=== PATIENT | female | born 1940 | race Two or more races ===

== ENCOUNTER 2017-06-08 13:50 | Emergency (ER) | payer MEDICARE, MEDICAID ==
[~2017-06-08] VITALS: Ht 152.4 cm; Wt 54.4 kg
[~2017-06-08 13:50] MED LIST: CLOP75TA41 PO; CYAN100022 SL; DONETAB6 PO; ENA2.5T PO; FERR325T PO; GABA-497; HYDR1CAP27 PO; HYDR25TA4 PO; LOPE2CAP PO; METF-372 PO; METO5TAB2 PO; MULTTAB OR; NOR10T PO; PAR20T PO; SIMV10TA84 PO; SUCR1TAB PO
[2017-06-08 14:42] LABS: Basophils # (auto) 0 uL; Basophils % (auto) 0.4 % (0.0-2.0); CONDITION Y; DEFINITIVE SEE PRINTOUT; Eosinophils # (auto) 0.1 uL; Eosinophils % (auto) 1.9 % (0.0-7.0); Hematocrit 37.8 % (36.0-46.0); Hemoglobin 12.2 g/dL (12.2-16.2); Lymphocytes # (auto) 2.8 uL; Lymphocytes % (auto) 36.8 % (10.0-50.0); Mean Corpuscular Hemoglobin 26.4 pg (28.0-32.0); Mean Corpuscular Hgb Conc. 32.4 g/dL (32.0-36.0); Mean Corpuscular Volume 81.5 fL (80.0-100.0); Mean Platelet Volume 8.7 fL (7.4-10.4); Monocytes # (auto) 0.6 uL; Monocytes % (auto) 7.5 % (0.0-12.0); Neutrophils % (auto) 53.4 % (37.0-80.0); Platelet Count (auto) 335 10^3/uL (140-450); Red Cell Distribution Width 16.4 % (11.6-16.0); White Blood Cell 7.5 10^3/uL (4.4-10.8)
[2017-06-08 15:07] LABS: Alkaline Phosphatase 88 U/L (45-117); Anion Gap 9 (5-15); Aspartate Aminotransferase 16 U/L (15-37); BUN/Creatinine Ratio 21.1; Bilirubin, Total 0.4 mg/dL (0.2-1.0); Blood Urea Nitrogen 39 mg/dL (7-18); Calcium 9.7 mg/dL (8.5-10.1); Carbon Dioxide 29 mmol/L (21-32); Chloride 100 mmol/L (98-107); GFR African American 34 mL/min; GFR Non-African American 28 mL/min; Glucose 128 mg/dL (74-106); Magnesium 2.4 mg/dL (1.6-2.6); Potassium 4.3 mmol/L (3.5-5.1); Sodium 138 mmol/L (136-145); Total Protein 8.1 g/dL (6.4-8.2)
[2017-06-08] MEDS ORDERED: DOCUSATE SOD 100 MG CAP PO ONE (19:15)
[2017-06-08 21:50] VITALS: BP 108/62
== END 2017-06-08 21:54 | disposition home or self-care (01) ==
LOC: ER 13:50
DX: K59.00 Constipation, unspecified (principal); I10 Essential (primary) hypertension; E11.9 Type 2 diabetes mellitus without complications; Z86.73 Personal history of transient ischemic attack (TIA), and cerebral infarction without residual deficits; G30.9 Alzheimer's disease, unspecified; F02.80 Dementia in other diseases classified elsewhere, unspecified severity, without behavioral disturbance, psychotic disturbance, mood disturbance, and anxiety; E78.5 Hyperlipidemia, unspecified; R11.2 Nausea with vomiting, unspecified
CPT/HCPCS: 36415; 74176; 80053; 83735; 84484; 85025; 93005

== ENCOUNTER 2018-02-21 23:48 | Emergency (ER) | payer MEDICARE, MEDICAID ==
[~2018-02-21] VITALS: Ht 152.4 cm; Wt 59.0 kg
[~2018-02-21 23:48] MED LIST changes: +FERR-20 PO; -FERR325T PO; -GABA-497; +GABA300C10
[2018-02-22 03:07] LABS: Basophils # (auto) 0.1 uL; Eosinophils # (auto) 0.2 uL; Eosinophils % (auto) 2.4 % (0.0-7.0); Hemoglobin 10.5 g/dL (12.2-16.2); Lymphocytes # (auto) 1.3 uL; Monocytes # (auto) 0.5 uL; Monocytes % (auto) 6.8 % (0.0-12.0); Neutrophils # (auto) 5.7 uL; Red Blood Cells 4.35 10^6/uL (4.0-5.20)
[2018-02-22 03:08] LABS: Basophils % (auto) 0.8 % (0.0-2.0); Hematocrit 33.3 % (36.0-46.0); Lymphocytes % (auto) 16.9 % (10.0-50.0); Mean Corpuscular Hemoglobin 24.3 pg (28.0-32.0); Mean Corpuscular Hgb Conc. 31.7 g/dL (32.0-36.0); Mean Corpuscular Volume 76.5 fL (80.0-100.0); Neutrophils % (auto) 73.1 % (37.0-80.0); Platelet Count (auto) 273 10^3/uL (140-450); Red Cell Distribution Width 16.4 % (11.8-14.3); White Blood Cell 7.8 10^3/uL (4.4-10.8)
[2018-02-22 03:23] LABS: Alanine Aminotransferase 18 U/L (13-56); Albumin 3.6 g/dL (3.4-5.0); Anion Gap 8 (5-15); Aspartate Aminotransferase 16 U/L (15-37); BUN/Creatinine Ratio 20.3; Blood Urea Nitrogen 32 mg/dL (7-18); Calcium 9.6 mg/dL (8.5-10.1); Carbon Dioxide 28 mmol/L (21-32); Chloride 103 mmol/L (98-107); GFR African American 41 mL/min; GFR Non-African American 34 mL/min; Glucose 163 mg/dL (74-106); Potassium 4.5 mmol/L (3.5-5.1); Sodium 139 mmol/L (136-145)
[2018-02-22 03:28] LABS: Alkaline Phosphatase 112 U/L (45-117); Bilirubin, Total 0.3 mg/dL (0.2-1.0); Total Protein 7.9 g/dL (6.4-8.2)
[2018-02-22] MEDS ORDERED: ALBUTEROL SULF 2.5 MG/0.5ML(0.5%) NEB SOLN NEB ONE (07:45)
[2018-02-22] MEDS ORDERED: IPRATROPIUM BROM 0.5 MG/2.5ML INH SOL NEB ONE (07:45)
[2018-02-22 10:07] LABS: Urine Bacteria MANY /hpf (None Seen); Urine Blood Negative /uL (Negative); Urine Mucus FEW (None Seen); Urine WBC 23 /hpf (0 - 5)
[2018-02-22] MEDS ORDERED: cefTRIAXone 1GM/10ml IVPUSH 10 ML IV ONE (11:45)
[2018-02-22] MEDS ORDERED: cefTRIAXone W LIDOCAINE 1 GM IM IM ONE (12:00)
[2018-02-22] MEDS ORDERED: LIDOCAINE 1% (LOCAL ANESTH.) PF 5ml SDV ONE (12:02)
[2018-02-22 12:14] VITALS: BP 138/72
== END 2018-02-22 12:15 | disposition home or self-care (01) ==
LOC: ER 23:49
DX: J20.9 Acute bronchitis, unspecified (principal); N39.0 Urinary tract infection, site not specified; E11.65 Type 2 diabetes mellitus with hyperglycemia; E11.21 Type 2 diabetes mellitus with diabetic nephropathy; G30.9 Alzheimer's disease, unspecified; F02.80 Dementia in other diseases classified elsewhere, unspecified severity, without behavioral disturbance, psychotic disturbance, mood disturbance, and anxiety; I10 Essential (primary) hypertension; K21.9 Gastro-esophageal reflux disease without esophagitis; E78.5 Hyperlipidemia, unspecified; F32.9 Major depressive disorder, single episode, unspecified; F41.9 Anxiety disorder, unspecified; Z86.73 Personal history of transient ischemic attack (TIA), and cerebral infarction without residual deficits; Z79.891 Long term (current) use of opiate analgesic; Z79.01 Long term (current) use of anticoagulants; Z79.84 Long term (current) use of oral hypoglycemic drugs; Z79.899 Other long term (current) drug therapy; Z93.1 Gastrostomy status
CPT/HCPCS: 36415; 71046; 80053; 81001; 83880; 84484; 85025; 85379; 87804; 93005; 94640; 96372; J0696

== ENCOUNTER 2019-11-03 16:32 | Emergency (ER) | payer MEDICARE, MEDICAID ==
[~2019-11-03] VITALS: Ht 152.4 cm; Wt 61.7 kg
[~2019-11-03 16:32] MED LIST changes: -ENA2.5T PO; +ENAL2.5T2 PO
[2019-11-03 20:22] VITALS: BP 121/63
== END 2019-11-03 20:33 | disposition home or self-care (01) ==
LOC: ER 16:32
DX: S92.415A Nondisplaced fracture of proximal phalanx of left great toe, initial encounter for closed fracture (principal); E11.9 Type 2 diabetes mellitus without complications; I10 Essential (primary) hypertension; E78.5 Hyperlipidemia, unspecified; Z98.51 Tubal ligation status; Z79.899 Other long term (current) drug therapy; X58.XXXA Exposure to other specified factors, initial encounter; Y93.89 Activity, other specified; Y99.8 Other external cause status; Y92.89 Other specified places as the place of occurrence of the external cause
CPT/HCPCS: 73630; 99283; L3260; 93005

== ENCOUNTER 2020-03-21 11:30 | Inpatient (IN) | payer MEDICARE, MEDICAID ==
[~2020-03-21] VITALS: Ht 152.4 cm; Wt 66.0 kg
[~2020-03-21 11:30] MED LIST changes: +AMIT25TA9 PO; -CYAN100022 SL; +DONE5TAB31 PO; -DONETAB6 PO; +FER325T PO; -FERR-20 PO; +FURO1TAB33 PO; +HYDR12.56 PO; -HYDR1CAP27 PO; -HYDR25TA4 PO; +HYDR50TA15 PO; -LOPE2CAP PO; +METO-158 PO; -METO5TAB2 PO; +MIRT1TAB38 PO; -MULTTAB OR; +NITR100C44 PO; -NOR10T PO; +PANT40T PO; -PAR20T PO; -SUCR1TAB PO
[2020-03-21] MEDS ORDERED: SODIUM CHLORIDE 0.9% 1,000 ML IV ONE (11:33)
[2020-03-21] MEDS ORDERED: FUROSEMIDE 40 MG/4 ML VIAL IV ONE (11:45)
[2020-03-21 11:57] LABS: Basophils % (auto) 1.3 % (0.0-2.0); Eosinophils # (auto) 0.1 10 ^3/uL (0-0.8); Lymphocytes # (auto) 1.4 10 ^3/uL (0.4-5.4); Monocytes # (auto) 0.3 10 ^3/uL (0-1.3)
[2020-03-21 11:59] LABS: Basophils # (auto) 0 10 ^3/uL (0-0.2); Eosinophils % (auto) 3.2 % (0.0-7.0); Hematocrit 30.1 % (36.0-46.0); Hemoglobin 9.3 g/dL (12.2-16.2); Lymphocytes % (auto) 37.1 % (10.0-50.0); Mean Corpuscular Hemoglobin 26.2 pg (28.0-32.0); Mean Corpuscular Hgb Conc. 30.8 g/dL (32.0-36.0); Mean Corpuscular Volume 84.8 fL (80.0-100.0); Monocytes % (auto) 7.4 % (0.0-12.0); Neutrophils # (auto) 1.9 10 ^3/uL (1.6-8.6); Nucleated Red Blood Cells % 0.1 %; Platelet Count (auto) 221 10^3/uL (140-450); Red Blood Cells 3.54 10^6/uL (4.0-5.20); Red Cell Distribution Width 18.4 % (11.8-14.3); White Blood Cell 3.8 10^3/uL (4.4-10.8)
[2020-03-21 12:13] LABS: INR 1.04 (0.9-1.15); Partial Thromboplastin Time 25.5 sec (23.64-32.05)
[2020-03-21 12:18] LABS: Alanine Aminotransferase 58 U/L (13-56); Albumin 3.7 g/dL (3.4-5.0); Anion Gap 6 (5-15); Blood Urea Nitrogen 33 mg/dL (7-18); Calcium 9.2 mg/dL (8.5-10.1); Carbon Dioxide 26 mmol/L (21-32); Chloride 104 mmol/L (98-107); Glucose 236 mg/dL (74-106); Potassium 4.9 mmol/L (3.5-5.1); Sodium 136 mmol/L (136-145)
[2020-03-21 12:23] LABS: Alkaline Phosphatase 160 U/L (45-117); Aspartate Aminotransferase 125 U/L (15-37); BUN/Creatinine Ratio 22.6; Bilirubin, Total 0.5 mg/dL (0.2-1.0); GFR African American 45 mL/min; GFR Non-African American 37 mL/min; Total Protein 7.4 g/dL (6.4-8.2)
[2020-03-21] MEDS ORDERED: DEXTROSE (50%) 50ML SYRG IV PRN (13:45)
[2020-03-21] MEDS ORDERED: NITROGLYCERIN 0.4 MG SL TAB SL PRN (13:45)
[2020-03-21] MEDS ORDERED: hydrALAZINE HCL 20 MG/ML VL IV PRN (13:45)
[2020-03-21] MEDS ORDERED: MORPHINE SULF INJ 2 MG/ML SYRINGE 1ML IV PRN (13:45)
[2020-03-21 14:16] LABS: CRP High Sensitivity 0.08 mg/dL (< 0.3)
[2020-03-21 14:24] LABS: % Iron Saturation 26.4 % (15-50)
--- NOTE | 2020-03-21 15:25 | NUR ---
Telemetry admit from [facility] admitted to Telemetry unit after SBAR received. Patient oriented to OTTO MOLINARN primary RN, unit,231 room, bed, and unit policies regarding patient care and visiting hours. Patient now on continuous telemetry monitoring, tele box # 17 and telemetry reading on arrival to unit is SR 74. Patient placed on bedside oxygen, weighed by bedscale and encouraged to call if they need something. All questions and concerns addressed, patient verbalized understanding.
[2020-03-21 16:26] VITALS: BP 147/70
[2020-03-21] MEDS: ACCU-CHEK COMFORT CURVE STRIP VI SCH ×2 (16:52→21:54)
[2020-03-21] MEDS: InsuLIN REG 1unit/0.01ml Soln (100units/ml) SC SCH ×2 (16:52→21:54)
[2020-03-21 16:53] VITALS: BP 147/70
[2020-03-21] MEDS ORDERED: LORazepam 2MG/ML-1ML VIAL IV PRN (18:00)
--- NOTE | 2020-03-21 19:20 | NUR ---
Opening Shift Note Received report from Katerina LEW. Assumed care of patient, awake and alert. No S/S of distress/SOB or pain. Instructed on POC and to call for assist PRN. Fall precaution measures in place, will continue to monitor for changes Q1hr and PRN.
[2020-03-21] MEDS: DONEPEZIL HYDROCHLORIDE 5 MG TAB PO SCH (21:53)
[2020-03-21] MEDS: METOPROLOL TARTRATE 50 MG TAB PO SCH (21:54)
[2020-03-21 22:00] VITALS: BP 142/85
--- NOTE | 2020-03-21 23:55 | NUR ---
Patient advised nothing by mouth after midnight for Cardiolite tomorrow, verbalized understanding.
[2020-03-22 01:19] LABS: Urine Bacteria FEW /hpf (None Seen); Urine Blood Negative /uL (Negative); Urine Budding Yeast OCCASIONAL /hpf (None Seen); Urine Mucus FEW (None Seen); Urine Specific Gravity 1.011 (1.001-1.035); Urine WBC 174 /hpf (0 - 5)
[2020-03-22 05:00] VITALS: BP 143/70
[2020-03-22 06:16] LABS: Eosinophils # (auto) 0.1 10 ^3/uL (0-0.8); Hemoglobin 8.9 g/dL (12.2-16.2); Monocytes # (auto) 0.4 10 ^3/uL (0-1.3); Monocytes % (auto) 10.8 % (0.0-12.0); White Blood Cell 3.8 10^3/uL (4.4-10.8)
[2020-03-22 06:19] LABS: Basophils # (auto) 0.1 10 ^3/uL (0-0.2); Basophils % (auto) 1.8 % (0.0-2.0); Eosinophils % (auto) 2.9 % (0.0-7.0); Hematocrit 27.8 % (36.0-46.0); Lymphocytes # (auto) 1.1 10 ^3/uL (0.4-5.4); Lymphocytes % (auto) 28.3 % (10.0-50.0); Mean Corpuscular Hemoglobin 26.7 pg (28.0-32.0); Mean Corpuscular Volume 83.5 fL (80.0-100.0); Neutrophils # (auto) 2.1 10 ^3/uL (1.6-8.6); Neutrophils % (auto) 56.2 % (37.0-80.0); Nucleated Red Blood Cells % 0.1 %; Platelet Count (auto) 197 10^3/uL (140-450); Red Blood Cells 3.34 10^6/uL (4.0-5.20); Red Cell Distribution Width 17.9 % (11.8-14.3)
[2020-03-22 06:32] LABS: Albumin 3.6 g/dL (3.4-5.0); Potassium 4.8 mmol/L (3.5-5.1)
[2020-03-22 06:35] LABS: BUN/Creatinine Ratio 22.9; Bilirubin, Total 0.4 mg/dL (0.2-1.0)
--- NOTE | 2020-03-22 06:43 | NUR ---
IV insertion IV access obtained, via clean sterile technique by inserting 22 gauge catheter at R hand after 1 attempt(s). IV secured properly. No trauma to site. Patient tolerated well.
[2020-03-22] MEDS: InsuLIN REG 1unit/0.01ml Soln (100units/ml) SC SCH ×4 (06:50→21:51)
[2020-03-22] MEDS: ACCU-CHEK COMFORT CURVE STRIP VI SCH ×4 (06:50→21:51)
--- NOTE | 2020-03-22 07:11 | NUR ---
Care endorsed to Katerina LEW.
[2020-03-22 08:00] VITALS: BP 154/81
--- NOTE | 2020-03-22 09:00 | NUR ---
Patient taken down for MRI.
[2020-03-22] MEDS ORDERED: ADENOSINE 55 MG in GIVE UN-DILUTED 0 ML IV STA (09:21)
--- NOTE | 2020-03-22 10:30 | NUR ---
Received phone call from Ultrasound per Asaf there is not enough pleural effusion for a thoracentesis.Will inform doctor Thais.
--- NOTE | 2020-03-22 10:40 | NUR ---
Paged doctor Thais to informed him of US results. Awaiting call back.
[2020-03-22 10:49] VITALS: BP 140/70
--- NOTE | 2020-03-22 11:30 | NUR ---
Patient back from stress test per patient she wants to wait till after lunch to take medications.
[2020-03-22 12:00] VITALS: BP 136/95
[2020-03-22] MEDS ORDERED: ONDANSETRON HCL 4 MG/2 ML VIAL IV PRN (12:30)
[2020-03-22] MEDS: PANTOPRAZOLE 40 MG TAB PO SCH (12:39)
[2020-03-22] MEDS: METOPROLOL TARTRATE 50 MG TAB PO SCH ×2 (12:39→21:51)
[2020-03-22] MEDS ORDERED: INSLANTI SC (13:42)
[2020-03-22] MEDS ORDERED: IPRAAER6 IN (13:42)
[2020-03-22] MEDS ORDERED: FURO40TA4 PO (13:42)
[2020-03-22] MEDS ORDERED: POTA1TAB61 PO (13:42)
[2020-03-22] MEDS ORDERED: FLUT1SPR5 NAS (13:42)
[2020-03-22 16:49] VITALS: BP 147/70
[2020-03-22 21:42] VITALS: BP 141/66
[2020-03-22] MEDS: DONEPEZIL HYDROCHLORIDE 5 MG TAB PO SCH (21:50)
[2020-03-23 04:49] VITALS: BP 149/66
[2020-03-23] MEDS: InsuLIN REG 1unit/0.01ml Soln (100units/ml) SC SCH ×4 (06:37→22:05)
[2020-03-23] MEDS: ACCU-CHEK COMFORT CURVE STRIP VI SCH ×4 (06:37→22:01)
--- NOTE | 2020-03-23 08:12 | NUR ---
[facility] CALLED, THEY REPORT THEY DON'T DO MAMMOGRAMS INPATIENT, THEY DO NOT HAVE THE MACHINE, PT WILL HAVE TO DO MAMMOGRAM OUTPATIENT.
[2020-03-23 09:00] VITALS: BP 158/73
[2020-03-23] MEDS: levoFLOXacin 250 MG TAB PO SCH (10:02)
[2020-03-23] MEDS: POTASSIUM CHL 10 Meq TABLET PO SCH (10:02)
[2020-03-23] MEDS: METOPROLOL TARTRATE 50 MG TAB PO SCH ×2 (10:03→22:00)
[2020-03-23] MEDS: FUROSEMIDE 20 MG TAB PO SCH (10:04)
[2020-03-23] MEDS: PANTOPRAZOLE 40 MG TAB PO SCH (10:04)
--- NOTE | 2020-03-23 12:29 | NUR ---
PT REPORTS 10/10 GENERALIZED BODY PAIN, NO PAIN MEDS ON BOARD. CALLED DR PETERSON AND REPORTED PT PAIN. AWARE, NEW ORDERS FOR TYLENOL 500 MG Q6.
[2020-03-23] MEDS ORDERED: ACETAMINOPHEN 500 MG TAB PO PRN (12:45)
[2020-03-23 13:00] VITALS: BP 155/70
[2020-03-23] MEDS: SILDENAFIL CITRATE 20 MG TAB PO SCH ×2 (14:21→19:58)
--- NOTE | 2020-03-23 15:25 | NUR ---
Est energy needs 0558-0700 kcal (25-30 kcal/kg BW 66kg) Est protein needs 53-66g (0.8-1g/kg BW 66g) Will reassess prn. Addendum: 03/23/20 at [address] Amended: Links added.
[2020-03-23 17:00] VITALS: BP 137/72
--- NOTE | 2020-03-23 17:17 | NUR ---
CHECKED PT BLOOD SUGAR, BS 131, PT REPORTS, "NO INSULINA." INSULIN HELD, WILL CONTINUE TO MONITOR.
[2020-03-23 22:00] VITALS: BP 165/75
[2020-03-23] MEDS: DONEPEZIL HYDROCHLORIDE 5 MG TAB PO SCH (22:00)
[2020-03-24 05:00] VITALS: BP 149/80
[2020-03-24] MEDS: ACCU-CHEK COMFORT CURVE STRIP VI SCH ×2 (06:27→11:30)
[2020-03-24] MEDS: InsuLIN REG 1unit/0.01ml Soln (100units/ml) SC SCH ×2 (06:32→11:30)
[2020-03-24 08:00] VITALS: BP 151/73
[2020-03-24] MEDS: PANTOPRAZOLE 40 MG TAB PO SCH (08:21)
[2020-03-24] MEDS: METOPROLOL TARTRATE 50 MG TAB PO SCH (08:21)
[2020-03-24] MEDS: POTASSIUM CHL 10 Meq TABLET PO SCH (08:22)
[2020-03-24] MEDS: SILDENAFIL CITRATE 20 MG TAB PO SCH (08:22)
[2020-03-24] MEDS: FUROSEMIDE 20 MG TAB PO SCH (08:22)
[2020-03-24] MEDS: levoFLOXacin 250 MG TAB PO SCH (08:23)
--- NOTE | 2020-03-24 10:02 | NUR ---
DR PETERSON SAW PATIENT AND DISCUSSED POC, ORLY AVILES TRANSLATED. NOTIFIED PT HER TESTS CAME BACK GOOD AND PT CAN BE DISCHARGED. PT AWARE. PT REPORTS SHE USES 3 L 02 AT HOME AND THAT HER DAUGHTER CAN BRING HER HOME 02 FOR TRANSPORT HOME UPON DISCHARGE.
--- NOTE | 2020-03-24 10:16 | NUR ---
PT NOTIFIED THAT SHE DID HAVE AN ULTRASOUND ON HER BREAST, AND THAT THERE WAS A SMALL MASS. PT EDUCATED TO FOLLOW UP WITH HER PRIMARY DOCTOR FOR A MAMMOGRAM SOON POSSIBLE. FLUTE POLISHER TRANSLATED, PT AWARE.
--- NOTE | 2020-03-24 10:36 | NUR ---
SPOKE WITH PT DAUGHTER HUSSEIN, NOTIFIED HER PATIENT NEEDS TO FOLLOW UP WITH HER PRIMARY FOR A MAMMOGRAM SOON POSSIBLE. DAUGHTER AWARE. HUSSEIN REPORTS SHE WILL BRING O2 FOR TRANSPORT HOME.
[2020-03-24 10:47] VITALS: BP 151/75
--- NOTE | 2020-03-24 10:52 | NUR ---
assessment re: ss consult Patient is a 79 year old female who is alert and oriented. Prior to admission patient lived home with her daughter Aida and functioned with assistance. Per Aida she will return home to her prior living arrangements post discharge and she will transport her home. Patient has a fww and a wheelchair for home use. Patient is on service with [facility]. Patient will need a resumption order on discharge. Patients daughter Aida is her [facility] caregiver. Patients PCP is Dr Carrasco. Patient feels safe returning home on discharge. I informed patient she has a right to speak to a manager social services regarding all care. I informed patient she has a right to participate in any and all discharge planning. Patient does not have a POA and advanced directive. I have offered patient information on POA and advanced directives. I informed the patient the advantages and benefits of having an Advanced Directive. Patient verbalized understanding and agreed to discharge plan. Addendum: 03/24/20 at 1453 by Jaja JEFFERS Amended: Links added.
--- NOTE | 2020-03-24 12:00 | NUR ---
Discharge instructions given as ordered. Encourage to follow up with PMD for mammogram, as well as family practice nurse practitioner and medical research scientist as instructed. All questions and concerns addressed. Patient verbalized understanding. Patient daughter also instructed patient needs follow up mammogram, Aida aware. Medication reconciliation form completed and copy given to patient. IV removed with catheter intact, pressure dressing applied. Telemetry unit returned to ICU. Patient taken to vehicle via wheelchair with all personal belongings, accompanied by staff. No distress noted at time of departure.
== END 2020-03-24 11:30 | disposition home or self-care (01) | DRG 291 ==
LOC: EDBD 11:30 → ER 11:30 → TELE 11:31 → TELE-EAST 15:47
PROVIDERS: ADMIT Nurse Practitioner Acute Care; ATTEND Family Medicine
DX: I13.0 Hypertensive heart and chronic kidney disease with heart failure and stage 1 through stage 4 chronic kidney disease, or unspecified chronic kidney disease (principal); I50.23 Acute on chronic systolic (congestive) heart failure; N39.0 Urinary tract infection, site not specified; K81.0 Acute cholecystitis; R55 Syncope and collapse; D50.9 Iron deficiency anemia, unspecified; K21.9 Gastro-esophageal reflux disease without esophagitis; N18.3 Chronic kidney disease, stage 3 (moderate); I25.10 Atherosclerotic heart disease of native coronary artery without angina pectoris; I27.20 Pulmonary hypertension, unspecified; I70.8 Atherosclerosis of other arteries; E11.22 Type 2 diabetes mellitus with diabetic chronic kidney disease; E78.5 Hyperlipidemia, unspecified; F41.9 Anxiety disorder, unspecified; F32.9 Major depressive disorder, single episode, unspecified; F03.90 Unspecified dementia, unspecified severity, without behavioral disturbance, psychotic disturbance, mood disturbance, and anxiety; E78.00 Pure hypercholesterolemia, unspecified; Z98.51 Tubal ligation status; Z86.73 Personal history of transient ischemic attack (TIA), and cerebral infarction without residual deficits; Z83.3 Family history of diabetes mellitus; Z82.49 Family history of ischemic heart disease and other diseases of the circulatory system; Z82.3 Family history of stroke; Z80.0 Family history of malignant neoplasm of digestive organs; Z98.49 Cataract extraction status, unspecified eye; Z87.891 Personal history of nicotine dependence; Z79.899 Other long term (current) drug therapy; Z79.84 Long term (current) use of oral hypoglycemic drugs; Z79.02 Long term (current) use of antithrombotics/antiplatelets; I27.21 Secondary pulmonary arterial hypertension; R29.6 Repeated falls; B96.20 Unspecified Escherichia coli [E. coli] as the cause of diseases classified elsewhere
CPT/HCPCS: 36415; 70450; 70551; 71045; 71250; 76642; 76705; 78452; 80053; 81001; 82728; 82962; 83036; 83540; 83550; 83615; 83880; 84484; 85025; 85045; 85610; 85730; 86141; 87040; 87086; 93005; 93017; 95819; 96361; 96374; 97116; 97163; 97530; 99291; G0378; J0153; J1815; J2405

== ENCOUNTER → 2020-04-09 | Emergency (ER) | payer MEDICARE, MEDICAID ==
[~2020-04-09] VITALS: Ht 160 cm; Wt 68.0 kg
[~2020-04-09] MED LIST changes: +ATROPINE SULF 1 MG/10ml SYR IV ONE; +CALCIUM CHLOR(10%) 100MG/ML 10ML SYRINGE IV ONE; +DOPamine 1600mCg/ml 400MG/250ml NSorD5 KIT/BAG IV ONE; +ENAL2.5T11 PO; -ENAL2.5T2 PO; +EPINEPHrine HCL 1 MG/10 ML SYRG IV ONE; +EPINEPHrine HCL 1 MG/10 ML SYRG ONE; +FLUT1SPR5 NAS; -FURO1TAB33 PO; +FURO40TA4 PO; +INSLANTI SC; +IPRAAER6 IN; +NITR-87 PO; -NITR100C44 PO; +NOREPINEPHRINE 8 MG/250ML KIT 250 ML IV ONE; +POTA1TAB61 PO; +SODIUM BICARBONATE 8.4% INJ 50ML SYRINGE IV ONE; +SODIUM BICARBONATE 8.4% INJ 50ML SYRINGE ONE
[2020-04-09 18:47] VITALS: BP 0/0
== END | disposition expired ==
LOC: EDUNIT# 18:42 → EDBD 18:46 → ER 18:48
DX: I46.9 Cardiac arrest, cause unspecified (principal); K21.9 Gastro-esophageal reflux disease without esophagitis; E11.9 Type 2 diabetes mellitus without complications; I11.0 Hypertensive heart disease with heart failure; I50.9 Heart failure, unspecified; E78.5 Hyperlipidemia, unspecified; Z98.51 Tubal ligation status; Z79.899 Other long term (current) drug therapy
CPT/HCPCS: 31500; 92950; 93005; 99285; J0171; J1265; 94002